=== PATIENT | male | born 1980 | race Two or more races ===

== ENCOUNTER 2019-09-19 12:44 | Emergency (ER) | payer BC ==
[~2019-09-19] VITALS: Ht 180.3 cm; Wt 79.8 kg
[2019-09-19 14:28] VITALS: BP 118/67
--- NOTE | 2019-09-19 14:28 | NUR ---
MD AT BEDSIDE DISCUSSING POC, PLAN FOR CONSULT W NEUROSURGERY. PT STABLE, VS STABLE. CO HEADACHE. NO FURTHER NEEDS AT THIS TIME
== END 2019-09-19 15:14 | disposition home or self-care (01) ==
LOC: ED 15:07
DX: S16.1XXA Strain of muscle, fascia and tendon at neck level, initial encounter (principal); S06.5X1A Traumatic subdural hemorrhage with loss of consciousness of 30 minutes or less, initial encounter; F07.81 Postconcussional syndrome; Y04.8XXA Assault by other bodily force, initial encounter; Y93.89 Activity, other specified; Y92.488 Other paved roadways as the place of occurrence of the external cause; Y99.8 Other external cause status
CPT/HCPCS: 70450; 72125; 99284